=== PATIENT | male | born 1945 | race Caucasian/White ===

== ENCOUNTER 2021-05-08 15:06 | Emergency (ER) | payer OTHER ==
[~2021-05-08] VITALS: Ht 167.6 cm; Wt 50.0 kg
[~2021-05-08 15:06] MED LIST: GUAI120015 PO; LEVO500T89 PO; PROP10TA10 PO
[2021-05-08 15:46] LABS: BASOPHILS % (AUTO) 0.5 % (0-1); EOSINOPHILS % (AUTO) 0.2 % (0-6); HEMATOCRIT 45.8 % (42.0-52.0); HEMOGLOBIN 15.5 g/dl (14.0-17.9); LYMPHOCYTES # (AUTO) 0.9 X10'3 (1.1-4.8); LYMPHOCYTES % (AUTO) 8.8 % (21-51); MEAN CORPUSCULAR HGB CONC 33.8 g/dL (33.0-36.5); MEAN CORPUSCULAR VOLUME 94.8 FL (78-98); MEAN PLATELET VOLUME 8.5 FL (7.4-10.4); MONOCYTES # (AUTO) 0.6 X10'3 (0-0.9); MONOCYTES % (AUTO) 5.5 % (2-12); NEUTROPHILS # (AUTO) 8.5 X10'3 (1.8-7.7); PLATELET COUNT 159 X10'3 (140-440); RED BLOOD COUNT 4.83 X10'6 (4.70-6.10); RED CELL DISTRIBUTION WIDTH 13.3 % (11.5-14.5)
[2021-05-08 15:59] LABS: ALANINE AMINOTRANSFERASE 19 U/L (12-78); ALBUMIN 3.6 G/DL (3.4-5.0); ALBUMIN/GLOBULIN RATIO 1.1 (1.1-1.5); ALKALINE PHOSPHATASE 86 IU/L (46-116); ANION GAP 10 (8-16); ASPARTATE AMINO TRANSFERASE 17 U/L (10-37); BILIRUBIN,TOTAL 0.6 MG/DL (0.1-1.0); BLOOD UREA NITROGEN 11 MG/DL (7-18); BUN/CREATININE RATIO 8.9 (5.4-32.0); CALCIUM 8.4 MG/DL (8.5-10.1); CHLORIDE 103 MMOL/L (99-107); CREATININE 1.23 MG/DL (0.60-1.10); GLUCOSE 165 MG/DL (70-104); POTASSIUM 3.7 MMOL/L (3.5-5.1); SODIUM 142 MMOL/L (135-145); TOTAL CARBON DIOXIDE 28.9 MMOL/L (24-32); TOTAL PROTEIN 6.9 G/DL (6.4-8.2); eGFR 57 ML/MIN
[2021-05-08] MEDS ORDERED: normal saline 1000ML IV soln IVB ONE (16:35)
[2021-05-08 18:59] LABS: CLARITY,URINE CLEAR (Clear); COLOR,URINE YELLOW (Yellow); GLUCOSE, URINE NEGATIVE (Neg); KETONES,URINE NEGATIVE (Neg); LEUKOCYTE ESTERASE ,URINE NEGATIVE (Neg); NITRITES, URINE NEGATIVE (Neg); OCCULT BLOOD,URINE NEGATIVE (Neg); PROTEIN,URINE NEGATIVE (Neg); UROBILINOGEN,URINE 0.2 E.U/dL (0.2-1.0)
[2021-05-08 19:06] LABS: UA COLLECTION TYPE CLN CATCH MIDSTREAM
[2021-05-08 20:07] VITALS: BP 102/56
== END 2021-05-08 20:25 | disposition home or self-care (01) ==
LOC: ER 15:06
DX: R55 Syncope and collapse (principal); J44.9 Chronic obstructive pulmonary disease, unspecified; F12.90 Cannabis use, unspecified, uncomplicated; Z79.2 Long term (current) use of antibiotics; Z79.899 Other long term (current) drug therapy
CPT/HCPCS: 36415; 71045; 80053; 81003; 83880; 84484; 85025; 93005; 96360; 96361; 99285; J7030

== ENCOUNTER 2021-05-12 14:23 | Emergency (ER) | payer OTHER ==
[~2021-05-12] VITALS: Ht 170.2 cm; Wt 51.0 kg
[2021-05-12 14:36] VITALS: BP 120/73
[2021-05-12] MEDS ORDERED: cephalexin 500mg capsule PO ONE (20:00)
== END 2021-05-12 20:40 | disposition left against medical advice (07) ==
LOC: ER 14:23
DX: K59.00 Constipation, unspecified (principal); Z53.21 Procedure and treatment not carried out due to patient leaving prior to being seen by health care provider

== ENCOUNTER 2022-10-17 07:58 | Day surgery (SDC) | payer OTHER ==
[2022-10-10 10:58] LABS: BASOPHILS # (AUTO) 0.1 X10'3 (0-0.2); EOSINOPHILS # (AUTO) 0.2 X10'3 (0-0.9); LYMPHOCYTES # (AUTO) 1.4 X10'3 (1.1-4.8); MEAN CORPUSCULAR HEMOGLOBIN 31.7 PG (27.0-31.0); MEAN CORPUSCULAR HGB CONC 33.2 g/dL (33.0-36.5); MEAN CORPUSCULAR VOLUME 95.2 FL (78-98); MEAN PLATELET VOLUME 8.7 FL (7.4-10.4); MONOCYTES # (AUTO) 0.5 X10'3 (0-0.9); MONOCYTES % (AUTO) 9.2 % (2-12); NEUTROPHILS # (AUTO) 3.8 X10'3 (1.8-7.7); NEUTROPHILS % (AUTO) 62.8 % (42-75); PRE OP HEMATOCRIT 46.7 % (42.0-52.0); PRE OP HEMOGLOBIN 15.5 g/dL (14.0-17.9); PRE OP PLATELET COUNT 170 X10'3 (140-440); RED CELL DISTRIBUTION WIDTH 14.3 % (11.5-14.5)
[2022-10-10 11:08] LABS: APTT 28 SECONDS (22-32)
[2022-10-10 11:14] LABS: ALBUMIN 3.6 G/DL (3.4-5.0); ALBUMIN/GLOBULIN RATIO 1.1 (1.1-1.5); ALKALINE PHOSPHATASE 90 IU/L (46-116); BLOOD UREA NITROGEN 14 MG/DL (7-18); BUN/CREATININE RATIO 15.7 (5.4-32.0); CALCIUM 8.6 MG/DL (8.5-10.1); CHLORIDE 106 MMOL/L (99-107); CREATININE 0.89 MG/DL (0.60-1.10); PRE OP ALT 19 U/L (30-65); PRE OP ANION GAP 5 (8-16); PRE OP AST 16 U/L (10-37); PRE OP BILIRUB, TOTAL 0.5 MG/DL (0.0-1.0); PRE OP GLUCOSE 92 MG/DL (70-104); PRE OP SODIUM 142 MMOL/L (135-145); TOTAL CARBON DIOXIDE 31.4 MMOL/L (24-32); TOTAL PROTEIN 6.8 G/DL (6.4-8.2); eGFR 83 ML/MIN
[~2022-10-17] VITALS: Ht 167.6 cm; Wt 49.9 kg
[2022-10-17] VITALS (12 sets, daily range): BP systolic 113–131; BP diastolic 65–76
[~2022-10-17 07:58] MED LIST changes: -GUAI120015 PO; -LEVO500T89 PO; +NO HOME MEDS; -PROP10TA10 PO; +albuterol 2.5 MG/3 ML nebule NEB ONE; +ceFAZolin inj. 2,000 MG in dextrose 5%-water 100 ML IV ONE; +famotidine 20mg tablet PO ONE; +ringers solution, lacted 1,000 ML IV SCH
[2022-10-17] MEDS ORDERED: BUPIVAcaine 0.5% inj/PF 30 ML ONE ×2 (09:33→09:39)
[2022-10-17] MEDS ORDERED: LIDOcaine 1% 30ml preserv. free vial ONE (09:33)
[2022-10-17] MEDS ORDERED: bacitracin 15gm ointment TP ONE ×2 (09:35→09:39)
[2022-10-17] MEDS ORDERED: ondansetron/PF 4mg/2ml inj ONE ×2 (09:51→10:28)
[2022-10-17] MEDS ORDERED: sevoflurane 250ml liquid IH ONE (09:51)
[2022-10-17] MEDS ORDERED: fentaNYL/PF 50MCG/1 ML 2ML syringe ONE (09:53)
[2022-10-17] MEDS ORDERED: midazolam 1 mg/ML 2ml injection ONE (09:53)
[2022-10-17] MEDS ORDERED: dexamethasone sod phosphate 4mg/ml inj. ONE (10:15)
[2022-10-17] MEDS ORDERED: ePHEDrine 50MG/ML INJ. ONE (10:15)
[2022-10-17] MEDS ORDERED: propofol inj 20 ML IV ONE (10:15)
[2022-10-17] MEDS ORDERED: morphine 4 MG/ML inj SYRINge IV PRN (10:20)
[2022-10-17] MEDS ORDERED: ringers solution, lacted 1,000 ML IV SCH (10:20)
[2022-10-17] MEDS ORDERED: BUPIVAcaine 0.5% inj/PF 30 ml vial IJ ONE (10:20)
[2022-10-17] MEDS ORDERED: ondansetron/PF 4mg/2ml inj IV PRN (10:20)
[2022-10-17] MEDS ORDERED: proCHLORperazine 10 MG/2 ml inj IV PRN (10:20)
[2022-10-17] MEDS ORDERED: meperidine/PF 25mg/ml syringe IV PRN ×3 (10:20)
[2022-10-17] MEDS ORDERED: morphine 2 MG/ML inj. syringe IV PRN (10:20)
--- NOTE | 2022-10-17 10:47 | NUR ---
Received from OR via , accompanied by Anesthesiologist OR NURSE and report given by Anesthesiolgist. PT IS DROWSY YET ABLE TO RESPOND TO VERBAL STIMULI. PT DENIES PAIN OR DISCOMFORT. 20G TO RT HAND. INCISIONAL DRESSING TORT LOWER ABDOMEN WITH GAUZE AND TAPE. Addendum: 10/17/22 at 1156 by Karen Hunt RN Amended: Links added.
== END 2022-10-17 13:17 | disposition home or self-care (01) ==
LOC: PAS 07:58
PROVIDERS: ATTEND Surgery
DX: K40.90 Unilateral inguinal hernia, without obstruction or gangrene, not specified as recurrent (principal); J44.9 Chronic obstructive pulmonary disease, unspecified; G25.0 Essential tremor; Z72.89 Other problems related to lifestyle; F17.210 Nicotine dependence, cigarettes, uncomplicated; Z98.890 Other specified postprocedural states; Z79.899 Other long term (current) drug therapy; Z79.01 Long term (current) use of anticoagulants
CPT/HCPCS: 36415; 49505; 80053; 82948; 85025; 85610; 85730; C1781; J0690; J1100; J2175; J2250; J2405; J2704; J3010; J3490; J7060; J7120; S0020; Z7512; A4215; A4615; A4618; A6449; A7000